=== PATIENT | male | born 1985 | race Caucasian/White ===

== ENCOUNTER 2024-10-20 12:43 | Emergency (ER) | payer BC ==
[~2024-10-20] VITALS: Ht 188 cm; Wt 89.8 kg
[2024-10-20 13:23] LABS: PLATELET COUNT (AUTO) 243 K/uL (150-450); RED BLOOD CELL COUNT(AUTO) 5.05 MIL/uL (4.5-6.0); RED CELL DISTRIBUTION WIDTH 12.9 % (11.5-15.0); WHITE BLOOD COUNT (AUTO) 5.4 K/uL (4.3-11.0)
[2024-10-20 13:34] LABS: CALCIUM, SERUM 9.0 mg/dL (8.5-10.1); CREATININE 0.7 mg/dL (0.6-1.3); SODIUM SERUM 140 mmol/L (136-145); UREA NITROGEN, BLOOD 13 mg/dL (7-18)
[2024-10-20 14:54] VITALS: BP 125/80; TEMP 98.5; O2SAT 99
== END 2024-10-20 14:57 | disposition home or self-care (01) ==
LOC: ER 13:06
DX: R07.9 Chest pain, unspecified (principal)
CPT/HCPCS: 36415; 71045-TC; 80048-TC; 84484-TC; 85025-TC